=== PATIENT | female | born 1960 | race Asian ===

== ENCOUNTER 2019-11-04 23:31 | Inpatient (IN) | payer OTHER ==
[~2019-11-04] VITALS: Ht 162.6 cm; Wt 70.1 kg
[2019-11-04] MEDS ORDERED: IV NS 1000 ML 1,000 ML IV ONE (23:45)
[2019-11-04] MEDS ORDERED: GLIP5TAB26 PO (23:49)
[2019-11-04] MEDS ORDERED: METF750T PO (23:49)
[2019-11-04] MEDS ORDERED: LISI40TA4 PO (23:49)
[2019-11-04] MEDS ORDERED: CHLO25TA2 PO (23:49)
[2019-11-05 00:18] LABS: BASOPHILS # (AUTO) 0.1 K/uL (0.0-8.0); BASOPHILS % (AUTO) 0.5 % (0.0-2.0); EOSINOPHILS # (AUTO) 0.2 K/uL (0.0-0.7); EOSINOPHILS % (AUTO) 1.8 % (0.0-7.0); HEMATOCRIT 36.9 % (31.2-41.9); HEMOGLOBIN 12.5 g/dL (10.9-14.3); LYMPHOCYTES # (AUTO) 2.7 K/uL (20.0-40.0); LYMPHOCYTES % (AUTO) 27.7 % (20.5-51.5); MEAN CORPUSCULAR HEMOGLOBIN 31.4 uug (24.7-32.8); MEAN CORPUSCULAR HGB CONC 34 g/dL (32.3-35.6); MEAN CORPUSCULAR VOLUME 92.8 fL (75.5-95.3); MONOCYTES # (AUTO) 0.7 K/uL (2.0-10.0); MONOCYTES % (AUTO) 6.9 % (0.0-11.0); NEUTROPHILS # (AUTO) 6.2 K/uL (1.8-8.9); NEUTROPHILS % (AUTO) 63.1 % (38.5-71.5); PLATELET COUNT (AUTO) 374 K/uL (179-408); RED BLOOD CELL COUNT(AUTO) 3.98 MIL/uL (3.63-4.92); WHITE BLOOD COUNT (AUTO) 9.9 K/uL (3.8-11.8)
[2019-11-05 00:25] LABS: CREATININE 1.3 mg/dL (0.6-1.3); POTASSIUM 3.5 mmol/L (3.5-5.1)
[2019-11-05 00:31] LABS: BILIRUBIN,DIRECT 0.1 mg/dL (0.0-0.2); BILIRUBIN,TOTAL 0.3 mg/dL (0.2-1.0)
--- NOTE | 2019-11-05 00:45 | NUR ---
CRITICAL : 2.2 LACTIC ACID PER [facility] (LAB)
[2019-11-05] MEDS ORDERED: ONDANSETRON 4 MG/2 ML VIAL IV ONE (01:00)
[2019-11-05] MEDS ORDERED: IV NS 1000 ML 1,000 ML IV ONE (01:45)
--- NOTE | 2019-11-05 01:59 | NUR ---
BJORN CALLED BACK RE TRIAGE VITALS AND CURRENT VITALS OF PT WAITING CALL BACK FOR AVAILABLILITY
[2019-11-05] MEDS ORDERED: PIPERACILLIN SODIUM/TAZOBACTAM 3.375 G in IV DEXTROSE 5% 50 ML IV ONE (02:00)
[2019-11-05 02:01] LABS: *BILIRUBIN,URIN NEGATIVE (NEGATIVE); *BLOOD, URINE TRACE (NEGATIVE); *CLARITY,URINE CLEAR (CLEAR); *COLOR,URINE STRAW (YELLOW); *KETONES,URINE NEGATIVE (NEGATIVE); *UROBILINOGEN,URINE 0.2 E.U./dl (NORMAL); LEUKOCYTE ESTERASE ,URINE TRACE (NEGATIVE); NITRITE, URINE NEGATIVE (NEGATIVE); UGLUCOSE NEGATIVE (NEGATIVE)
[2019-11-05] MEDS ORDERED: PIPERACILLIN/TAZOBACTAM/D5W 50 ML IV ONE (02:08)
[2019-11-05 02:29] LABS: BACTERIA,URINE NONE SEEN /HPF (NONE SEEN); SQUAMOUS EPITHELIAL CELL,UR FEW /HPF (NONE SEEN)
[2019-11-05] MEDS ORDERED: NOREPINEPHRINE BITARTRATE 8 MG in IV DEXTROSE 5% 500 ML IV ONE (02:30)
[2019-11-05] MEDS ORDERED: IV NS 1000 ML 1,000 ML IV PRN (03:16)
[2019-11-05] MEDS ORDERED: DEXTROSE 50% 50 ML DISP.SYRIN IV PRN (03:30)
[2019-11-05] MEDS ORDERED: Z GUARD REMEDY PASTE 57 GM TUBE TOP PRN (03:30)
[2019-11-05] MEDS ORDERED: HYDROCODONE/APAP 5-325MG TABLET PO PRN (03:30)
[2019-11-05] MEDS ORDERED: TEMAZEPAM 15 MG CAPSULE PO PRN (03:30)
[2019-11-05] MEDS ORDERED: INSULIN REGULAR, HUMAN 300 UNIT/3 ML VIAL SQ PRN (03:30)
[2019-11-05] MEDS ORDERED: MAGNESIUM HYDROXIDE 30 ML LIQUID UDC PO PRN (03:30)
[2019-11-05] MEDS ORDERED: ONDANSETRON 4 MG/2 ML VIAL IV PRN (03:30)
[2019-11-05] MEDS ORDERED: ACETAMINOPHEN 325 MG TABLET PO PRN (03:30)
--- NOTE | 2019-11-05 03:52 | NUR ---
Pt. admitted to Telemetry , under care of Ricco Hay Belongs List completed
--- NOTE | 2019-11-05 04:30 | NUR ---
Admitted 59y/o Female under the care of Satnam ESPOSITO. Dx: Hypotension and lactic acidosis. Patient is A&Ox4, noted ambulatory. No more complaints of n/v, no diarrhea. Placed on Tele monitor noted w/ SR. IV access on LFA 20g intact and patent w/ saline flush. Admission protocol initiated. Body assessment done. Safety measures observed. Call light in reach
[2019-11-05] MEDS ORDERED: PIPERACILLIN SODIUM/TAZOBACTAM 3.375 G in IV DEXTROSE 5% 50 ML IV SCH (06:00)
[2019-11-05] MEDS: BLOOD SUGAR DIAGNOSTIC 1 EACH STRIP VI SCH ×2 (06:49→11:25)
--- NOTE | 2019-11-05 07:30 | NUR ---
Received patient in Bed, awake and verbally responsive. No signs of Distress noted. No complain or discomfort. No complain of Dizziness. No Nausea/Vomiting. Last Blood sugar is 88. No signs of hyper/Hypoglycemia. Kept comfortable. Will continue to monitor.
[2019-11-05] MEDS ORDERED: PANTOPRAZOLE SODIUM 40 MG VIAL IV SCH (09:00)
[2019-11-05] MEDS ORDERED: glipiZIDE XL 5 MG TABCR PO SCH (09:00)
[2019-11-05] MEDS ORDERED: PIPERACILLIN/TAZOBACTAM/D5W 3.375 G in IV DEXTROSE 5% 50 ML IV SCH (10:00)
[2019-11-05 11:24] VITALS: BP 117/58
[2019-11-05] MEDS ORDERED: CIPR-263 PO (12:23)
--- NOTE | 2019-11-05 14:10 | NUR ---
Seen and examined by CATE Macdonald, with Order to be discharge today. Patient is awake, alert and verbally responsive. No signs of distress noted. No complain of Pain or discomfort.last Blood sugar is 129, No coverage. Discharge Instructions given to patient and verbalized Understanding. Removed refrigerator repair technician, IV site and wrist band. All belongings signed and sent with Patient. Patient left in stable condition.
== END 2019-11-05 14:10 | disposition home or self-care (01) | DRG 392 ==
LOC: ER 23:35 → TELE3 11-05 03:58
PROVIDERS: ADMIT Nurse Practitioner Acute Care; ATTEND Nurse Practitioner Acute Care
DX: A05.9 Bacterial foodborne intoxication, unspecified (principal); E87.2 Acidosis; R57.9 Shock, unspecified; I10 Essential (primary) hypertension; E11.9 Type 2 diabetes mellitus without complications; L40.9 Psoriasis, unspecified; Z79.84 Long term (current) use of oral hypoglycemic drugs; Z79.899 Other long term (current) drug therapy; R42 Dizziness and giddiness; I44.0 Atrioventricular block, first degree
CPT/HCPCS: 36415; 70030-TC; 83605; 85025; 85730; 87040; 87086; 93005; A4663; C9113; G0378; J1815; J2405; J2543; J7030; J7060; J8499